=== PATIENT | female | born 1995 | race Caucasian/White ===

== ENCOUNTER 2019-11-28 10:00 | Inpatient (IN) ==
[2019-11-28] MEDS ORDERED: Oxytocin 20 units/ LR 1000 mL 20 UNIT/1,000 ML BAG IVC SCH (11:09)
[2019-11-28] MEDS ORDERED: D5% in 0.45% NACL 1,000 ML IVC SCH (11:09)
[2019-11-28] MEDS ORDERED: miSOPROStoL 25 MCG TABLET ONE (11:43)
[2019-11-28] MEDS ORDERED: Ringers Solution, Lactated 1,000 ML ONE (16:46)
[2019-11-28] MEDS ORDERED: Oxytocin 20 units/ LR 1000 mL 20 UNIT/1,000 ML BAG IVC ONE (16:47)
[2019-11-28] MEDS ORDERED: Lidocaine 1% 20 ML MDV INFILT PRN (19:38)
[2019-11-28] MEDS ORDERED: Naloxone 0.4 MG/ML INJ IVP PRN (19:38)
[2019-11-28] MEDS ORDERED: Famotidine 20 MG/2 ML VIAL IVP PRN (19:38)
[2019-11-28] MEDS ORDERED: *HR* FentaNYL (PF) 100 MCG/2 ML VIAL IVP PRN (19:38)
[2019-11-28] MEDS ORDERED: Metoclopramide 10 MG/2 ML VIAL IVP PRN (19:38)
[2019-11-28] MEDS ORDERED: Ringers Solution, Lactated 1,000 ML IVC SCH (19:45)
[2019-11-28] MEDS ORDERED: EPHEDrine 50 MG/ML VIAL IVP PRN (21:01)
[2019-11-28] MEDS ORDERED: Epidural Premix (fent/bupiv) 110 ML EP SCH (21:15)
[2019-11-28] MEDS ORDERED: *HR* FentaNYL (PF) 100 MCG/2 ML VIAL ONE (21:35)
[2019-11-28] MEDS ORDERED: Ropivacaine/PF 0.2% 20 ML VIAL ONE (21:35)
[2019-11-29 01:13] LABS: Amphetamine Screen,Urine Negative ng/mL (Cutoff=1000); Barbiturate Screen,Urine Negative ng/mL (Cutoff=200); Benzodiazepines Screen,Urine Negative ng/mL (Cutoff=200); Cannabinoid Screen,Urine Negative ng/mL (Cutoff = 50); Cocaine Screen,Urine Negative ng/mL (Cutoff= 300); Opiate Screen,Urine Negative ng/mL (Cutoff=300); Phencyclidine Screen,Urine Negative ng/mL (Cutoff=25)
[2019-11-29] MEDS ORDERED: Measles/Mumps/Rubella Vacc 0.5 ML VIAL SQ PRN (03:06)
[2019-11-29] MEDS ORDERED: Oxytocin 20 units/ LR 1000 mL 20 UNIT/1,000 ML BAG IVC SCH (03:06)
[2019-11-29] MEDS ORDERED: Rho Immune Globulin 1,500 UNIT SYRINGE IM PRN (03:06)
[2019-11-29] MEDS: Ibuprofen 600 MG TABLET PO PRN ×3 (05:19→20:46)
[2019-11-29] MEDS: Acetaminophen 325 MG TABLET PO PRN (07:54)
[2019-11-29] MEDS: Prenatal Vit/FA 1 EACH TABLET PO SCH (07:54)
[2019-11-29 09:40] LABS: Basophils % 0.1 %; Eosinophils % 0.3 %; Hematocrit 32.8 % (35.3-44.9); Hemoglobin 10.6 g/dL (11.5-15.4); Immature Granulocytes % 0.5 % (0-4); Lymphocytes % 9.1 %; Mean Corpuscular HGB Conc 32.3 g/dL (31.6-35.5); Mean Corpuscular Hemoglobin 27.9 pg (28.0-33.3); Mean Corpuscular Volume 86.3 fL (83.0-100.0); Mean Platelet Volume 10.4 fL (9.4-12.4); Monocytes # 0.6 K/mcL (0.0-1.3); Monocytes % 5.6 %; Neutrophils # 9.6 K/mcL (1.6-8.9); Platelet Count 246 K/mcL (140-400); Red Cell Distribution Width 13.1 % (11.5-14.5); Segmented Neutrophils % 84.4 %; White Blood Count 11.3 K/mcL (4.3-11.1)
[2019-11-30] MEDS: GuaiFENesin Liq 200 MG/10 ML UDC PO PRN ×2 (03:16→10:20)
[2019-11-30] MEDS: Ibuprofen 600 MG TABLET PO PRN (06:03)
[2019-11-30 07:46] VITALS: BP 108/71
[2019-11-30] MEDS: Prenatal Vit/FA 1 EACH TABLET PO SCH (10:18)
[2019-11-30] MEDS: Acetaminophen 325 MG TABLET PO PRN (10:20)
== END 2019-11-30 14:29 | disposition home or self-care (01) | DRG 807 ==
LOC: 1NENULAB 16:44 → 1NENUOBS 11-29 03:05
PROVIDERS: ADMIT Student in an Organized Health Care Education/Training Program; ATTEND Student in an Organized Health Care Education/Training Program